=== PATIENT | female | born 1990 | race Two or more races ===

== ENCOUNTER 2020-02-11 19:31 | Emergency (ER) | payer BC, OTHER ==
[~2020-02-11] VITALS: Ht 170.2 cm; Wt 104.0 kg
[2020-02-11] MEDS ORDERED: ONDANSETRON 2MG/ML, 2ML IVPush ONE (20:00)
--- NOTE | 2020-02-11 20:06 | NUR ---
pt to room from lobby
[2020-02-11 20:23] LABS: BASOPHILS % (AUTO) 0 % (0-1); EOSINOPHILS % (AUTO) 1 % (1-7); LYMPHOCYTES % (AUTO) 30 % (22-44); MEAN CORPUSCULAR HEMOGLOBIN 29.9 pg (27.0-34.8); MEAN CORPUSCULAR HGB CONC 34.6 g/dL (32.4-35.8); MEAN PLATELET VOLUME 9.1 fL (7.4-10.4); MONOCYTES % (AUTO) 5 % (2-9); NEUTROPHILS % (AUTO) 64 % (42-75); PLATELET COUNT 233 x10^3/uL (130-400); RED BLOOD COUNT 4.62 x10^6/uL (3.82-5.3); RED CELL DISTRIBUTION WIDTH 12.5 % (9.6-15.2)
[2020-02-11 20:25] LABS: MICROSCOPIC NOT IND
[2020-02-11 20:26] LABS: MD NO
[2020-02-11 20:37] LABS: ALANINE AMINOTRANSFERASE 32 U/L (12-78); ANION GAP 6 mmol/L (5-15); CHLORIDE 107 mmol/L (98-107); CREATININE 0.57 mg/dL (0.55-1.02)
[2020-02-11 20:41] LABS: ALKALINE PHOSPHATASE 86 U/L (45-117); BILIRUBIN,TOTAL 0.3 mg/dL (0.2-1.0); TOTAL PROTEIN 6.9 g/dL (6.4-8.2); TROPONIN I < 0.015 ng/mL (0.000-0.045)
[2020-02-11] MEDS ORDERED: LABETALOL 5MG/ML, 20ML ONE (20:46)
[2020-02-11] MEDS ORDERED: LABETALOL 5MG/ML, 20ML IVPush ONE (21:00)
[2020-02-11 21:13] VITALS: BP 133/86
== END 2020-02-11 21:29 | disposition home or self-care (01) ==
LOC: EDBD 19:31 → ED 21:18
DX: O26.891 Other specified pregnancy related conditions, first trimester (principal); R51.9 Headache, unspecified; R00.0 Tachycardia, unspecified; I10 Essential (primary) hypertension; R06.02 Shortness of breath; Z3A.12 12 weeks gestation of pregnancy
CPT/HCPCS: 36415; 71045; 80053; 81003; 83880; 84484; 85025; 93005; 96374; 99285

== ENCOUNTER 2020-03-18 13:11 | Emergency (ER) | payer MEDICAID ==
[~2020-03-18] VITALS: Ht 170.2 cm; Wt 98.8 kg
[2020-03-18] MEDS ORDERED: LABE200T6 PO (13:46)
[2020-03-18] MEDS ORDERED: SODIUM CHLORIDE FLUSH 10ML SYR IVF ONE (14:00)
[2020-03-18] MEDS ORDERED: SODIUM CHLORIDE 0.9% 1,000ML IVBOLUS ONE (14:00)
[2020-03-18] MEDS ORDERED: METOCLOPRAMIDE 5 MG/ML, 2ML IVPush ONE (14:00)
[2020-03-18 14:15] LABS: ALANINE AMINOTRANSFERASE 69 U/L (12-78); ALBUMIN 2.7 g/dL (3.4-5.0); ANION GAP 10 mmol/L (5-15); CALCIUM 8.9 mg/dL (8.5-10.1); CHLORIDE 106 mmol/L (98-107)
[2020-03-18 14:17] LABS: ALKALINE PHOSPHATASE 135 U/L (45-117); BASOPHILS % (AUTO) 0 % (0-1); BILIRUBIN,TOTAL 0.3 mg/dL (0.2-1.0); EOSINOPHILS % (AUTO) 0 % (1-7); LYMPHOCYTES % (AUTO) 23 % (22-44); MEAN CORPUSCULAR HEMOGLOBIN 29.4 pg (27.0-34.8); MEAN CORPUSCULAR HGB CONC 34.3 g/dL (32.4-35.8); MEAN PLATELET VOLUME 9.5 fL (7.4-10.4); MONOCYTES % (AUTO) 13 % (2-9); NEUTROPHILS % (AUTO) 63 % (42-75); PLATELET COUNT 165 x10^3/uL (130-400); RED BLOOD COUNT 5.04 x10^6/uL (3.82-5.3); RED CELL DISTRIBUTION WIDTH 12.6 % (9.6-15.2); TOTAL PROTEIN 6.8 g/dL (6.4-8.2)
[2020-03-18] MEDS ORDERED: METOCLOPRAMIDE 5 MG/ML, 2ML ONE (14:21)
[2020-03-18 14:23] LABS: MD NO
[2020-03-18 14:41] LABS: MICROSCOPIC NOT IND
--- NOTE | 2020-03-18 14:49 | NUR ---
UA SENT, MEDICATED PER ORDERS .PT NAUSEAUS
[2020-03-18 16:25] VITALS: BP 130/86
== END 2020-03-18 16:28 | disposition home or self-care (01) ==
LOC: ED 15:57
DX: U07.1 COVID-19 (principal); O21.9 Vomiting of pregnancy, unspecified; I10 Essential (primary) hypertension; Z3A.17 17 weeks gestation of pregnancy
CPT/HCPCS: 36415; 80053; 81003; 83690; 85025; 96361; 96374; 99283; J2765; J7030

== ENCOUNTER 2020-05-26 12:11 | Inpatient (IN) | payer BC, MEDICAID ==
[~2020-05-26] VITALS: Ht 170.2 cm; Wt 104.5 kg
[~2020-05-26 12:11] MED LIST: LABE200T6 PO
[2020-05-26 12:46] LABS: BASOPHILS % (AUTO) 1 % (0-1); EOSINOPHILS % (AUTO) 1 % (1-7); LYMPHOCYTES % (AUTO) 21 % (22-44); MEAN CORPUSCULAR HEMOGLOBIN 30.6 pg (27.0-34.8); MEAN CORPUSCULAR HGB CONC 34.6 g/dL (32.4-35.8); MEAN PLATELET VOLUME 10.1 fL (7.4-10.4); MONOCYTES % (AUTO) 6 % (2-9); NEUTROPHILS % (AUTO) 71 % (42-75); PLATELET COUNT 223 x10^3/uL (130-400); RED BLOOD COUNT 4.54 x10^6/uL (3.82-5.3); RED CELL DISTRIBUTION WIDTH 13.7 % (9.6-15.2)
[2020-05-26] MEDS ORDERED: LABETALOL 5MG/ML, 20ML ONE (12:49)
[2020-05-26 12:51] LABS: MD NO
[2020-05-26 12:55] LABS: ALANINE AMINOTRANSFERASE 18 U/L (12-78); ALBUMIN 2.5 g/dL (3.4-5.0); ANION GAP 8 mmol/L (5-15); CALCIUM 9.4 mg/dL (8.5-10.1); CHLORIDE 110 mmol/L (98-107); CREATININE 0.47 mg/dL (0.55-1.02)
[2020-05-26 12:58] LABS: ALKALINE PHOSPHATASE 110 U/L (45-117); BILIRUBIN,TOTAL 0.2 mg/dL (0.2-1.0); TOTAL PROTEIN 6.5 g/dL (6.4-8.2)
[2020-05-26] MEDS ORDERED: LABETALOL 5MG/ML, 20ML IVPush PRN ×3 (13:00)
[2020-05-26] MEDS ORDERED: hydrALAzine 20 MG/ML, 1ML IVPush ONE (13:00)
[2020-05-26 13:07] LABS: MICROSCOPIC NOT IND
[2020-05-26 14:45] VITALS: BP 168/105
[2020-05-26] MEDS ORDERED: PREN1TAB60 PO (16:25)
[2020-05-26] MEDS ORDERED: ASPI-963 PO (16:26)
[2020-05-26] MEDS ORDERED: ACETAMINOPHEN 325 MG TABLET ONE (17:12)
[2020-05-26] MEDS: ACETAMINOPHEN 325 MG TABLET PO PRN (17:20)
[2020-05-26] MEDS ORDERED: LACTATED RINGERS 1,000 ML IV SCH ×2 (17:30→17:38)
[2020-05-26] MEDS ORDERED: LABETALOL 200 MG TABLET HOMEMEDPO ONE (18:00)
[2020-05-26] MEDS ORDERED: LABETALOL 200 MG TABLET PO SCH (18:00)
[2020-05-26] MEDS: SODIUM CHLORIDE FLUSH 3ML SYRINGE IVF SCH (21:00)
[2020-05-26] MEDS ORDERED: ONDANSETRON 2MG/ML, 2ML ONE (21:01)
[2020-05-26] MEDS: ONDANSETRON 2MG/ML, 2ML IVPush PRN (21:03)
[2020-05-26] MEDS: OXYcodone/APAP 5/325MG TABLET PO PRN (22:16)
[2020-05-27] MEDS: LABETALOL 200 MG TABLET HOMEMEDPO SCH ×2 (01:58→10:00)
[2020-05-27] MEDS: ACETAMINOPHEN 325 MG TABLET PO PRN ×3 (03:02→22:25)
[2020-05-27] MEDS ORDERED: IBUPROFEN 600 MG TABLET PO ONE (03:30)
[2020-05-27] MEDS: SODIUM CHLORIDE FLUSH 3ML SYRINGE IVF SCH ×2 (08:41→19:30)
[2020-05-27 08:55] VITALS: BP 151/76
[2020-05-27] MEDS: ASPIRIN 81 MG TABLET EC HOMEMEDPO SCH (09:00)
[2020-05-27] MEDS: PRENATAL VIT/IRON/FA 1 EACH TABLET HOMEMEDPO SCH (09:00)
[2020-05-27] MEDS: LABETALOL 300 MG TABLET PO SCH (17:56)
[2020-05-27 19:28] VITALS: BP 170/94
[2020-05-27] MEDS ORDERED: hydrALAzine 20 MG/ML, 1ML ONE (19:48)
[2020-05-27] MEDS ORDERED: hydrALAzine 20 MG/ML, 1ML IV ONE (20:00)
[2020-05-27] MEDS ORDERED: hydrALAzine 20 MG/ML, 1ML IVPush ONE ×2 (20:00)
[2020-05-27] MEDS ORDERED: LABETALOL 5MG/ML, 20ML IVPush ONE (20:00)
[2020-05-27] MEDS: ONDANSETRON 2MG/ML, 2ML IVPush PRN (22:59)
[2020-05-28] MEDS: LABETALOL 300 MG TABLET PO SCH ×3 (01:51→18:12)
[2020-05-28] MEDS: ACETAMINOPHEN 325 MG TABLET PO PRN (02:35)
[2020-05-28 07:10] VITALS: BP 148/83
[2020-05-28] MEDS ORDERED: BUTALB/APAP/CAFFEINE 50MG/325MG/40MG ONE (07:16)
[2020-05-28] MEDS: BUTALB/APAP/CAFFEINE 50MG/325MG/40MG PO PRN (07:26)
[2020-05-28] MEDS ORDERED: BUTALBIT/ACETAMIN/CAFF/CODEINE CAPSULE PO PRN ×2 (07:30)
[2020-05-28] MEDS ORDERED: [UNRECOGNIZED DRUG - OTHER] MC SCH (07:30)
[2020-05-28] MEDS: ONDANSETRON 2MG/ML, 2ML IVPush PRN (07:47)
[2020-05-28] MEDS ORDERED: BUTALB/APAP/CAFFEINE 50MG/325MG/40MG PO ONE ×2 (08:30→13:30)
[2020-05-28] MEDS: SODIUM CHLORIDE FLUSH 3ML SYRINGE IVF SCH ×2 (09:00→21:00)
[2020-05-28] MEDS: PRENATAL VIT/IRON/FA 1 EACH TABLET HOMEMEDPO SCH (09:52)
[2020-05-28] MEDS: ASPIRIN 81 MG TABLET EC HOMEMEDPO SCH (09:52)
[2020-05-28] MEDS ORDERED: PROCHLORPERAZINE 10MG TABLET PO PRN (13:30)
[2020-05-28] MEDS: OXYcodone/APAP 5/325MG TABLET PO PRN (13:55)
[2020-05-28] MEDS: BETAMETHASONE 6 MG/ML, 5ML IM SCH (14:06)
[2020-05-28 14:28] LABS: ALANINE AMINOTRANSFERASE 19 U/L (12-78); ALBUMIN 2.4 g/dL (3.4-5.0); ANION GAP 8 mmol/L (5-15); CALCIUM 9.4 mg/dL (8.5-10.1); CHLORIDE 109 mmol/L (98-107)
[2020-05-28 14:30] LABS: BASOPHILS % (AUTO) 1 % (0-1); BILIRUBIN, DIRECT < 0.1 mg/dL (0.1-0.2); EOSINOPHILS % (AUTO) 0 % (1-7); LYMPHOCYTES % (AUTO) 20 % (22-44); MEAN CORPUSCULAR HEMOGLOBIN 30.5 pg (27.0-34.8); MEAN CORPUSCULAR HGB CONC 33.9 g/dL (32.4-35.8); MEAN PLATELET VOLUME 10.8 fL (7.4-10.4); MONOCYTES % (AUTO) 6 % (2-9); NEUTROPHILS % (AUTO) 74 % (42-75); PLATELET COUNT 225 x10^3/uL (130-400); RED BLOOD COUNT 4.44 x10^6/uL (3.82-5.3); RED CELL DISTRIBUTION WIDTH 13.5 % (9.6-15.2)
[2020-05-28 14:31] LABS: ALKALINE PHOSPHATASE 101 U/L (45-117); BILIRUBIN,TOTAL 0.2 mg/dL (0.2-1.0); CREATININE 0.66 mg/dL (0.55-1.02); TOTAL PROTEIN 6.6 g/dL (6.4-8.2)
[2020-05-28 14:33] LABS: MD NO
[2020-05-28] MEDS ORDERED: niFEDipine ER 30 MG TABLET.ER ONE (15:52)
[2020-05-28] MEDS: niFEDipine ER 30 MG TABLET.ER PO SCH (15:54)
[2020-05-28 19:15] VITALS: BP 135/80
[2020-05-29] MEDS: LABETALOL 300 MG TABLET PO SCH ×3 (02:20→17:54)
[2020-05-29 07:23] VITALS: BP 120/68
[2020-05-29] MEDS: PRENATAL VIT/IRON/FA 1 EACH TABLET HOMEMEDPO SCH (10:03)
[2020-05-29] MEDS: ASPIRIN 81 MG TABLET EC HOMEMEDPO SCH (10:03)
[2020-05-29] MEDS: SODIUM CHLORIDE FLUSH 3ML SYRINGE IVF SCH ×2 (10:04→21:46)
[2020-05-29] MEDS: BETAMETHASONE 6 MG/ML, 5ML IM SCH (13:30)
[2020-05-29] MEDS: niFEDipine ER 30 MG TABLET.ER PO SCH (14:15)
[2020-05-29] MEDS ORDERED: hydrALAzine 20 MG/ML, 1ML ONE (15:37)
[2020-05-29] MEDS ORDERED: hydrALAzine 20 MG/ML, 1ML IVPush ONE ×4 (16:00→17:00)
[2020-05-29] MEDS ORDERED: LABETALOL 5MG/ML, 20ML IVPush ONE (16:00)
[2020-05-29 19:12] VITALS: BP 138/82
[2020-05-30] MEDS: LABETALOL 300 MG TABLET PO SCH ×3 (01:51→18:17)
[2020-05-30] MEDS: SODIUM CHLORIDE FLUSH 3ML SYRINGE IVF SCH ×2 (09:00→21:00)
[2020-05-30] MEDS: ASPIRIN 81 MG TABLET EC HOMEMEDPO SCH (10:05)
[2020-05-30] MEDS: PRENATAL VIT/IRON/FA 1 EACH TABLET HOMEMEDPO SCH (10:05)
[2020-05-30 10:30] VITALS: BP 145/75
[2020-05-30] MEDS: niFEDipine ER 30 MG TABLET.ER PO SCH (15:08)
[2020-05-30] MEDS ORDERED: LABETALOL 100 MG TABLET PO ONE (18:30)
[2020-05-30] MEDS ORDERED: hydrALAzine 20 MG/ML, 1ML ONE (18:40)
[2020-05-30] MEDS ORDERED: hydrALAzine 20 MG/ML, 1ML IVPush ONE ×3 (19:00→21:30)
[2020-05-30 19:27] VITALS: BP 146/83
[2020-05-30 20:55] VITALS: BP 174/106
[2020-05-30 21:15] VITALS: BP 165/101
[2020-05-30] MEDS ORDERED: LABETALOL 5MG/ML, 20ML IVPush ONE (21:30)
[2020-05-30 22:00] VITALS: BP 159/101
[2020-05-30 22:23] VITALS: BP 126/73
[2020-05-31] MEDS ORDERED: LABETALOL 100 MG TABLET ONE (01:54)
[2020-05-31 01:58] VITALS: BP 137/74
[2020-05-31] MEDS: LABETALOL 200 MG TABLET PO SCH ×3 (01:59→17:01)
[2020-05-31] MEDS ORDERED: LABETALOL 300 MG TABLET PO SCH (02:00)
[2020-05-31] MEDS: SODIUM CHLORIDE FLUSH 3ML SYRINGE IVF SCH ×2 (09:00→21:00)
[2020-05-31] MEDS: ASPIRIN 81 MG TABLET EC HOMEMEDPO SCH (09:09)
[2020-05-31] MEDS: PRENATAL VIT/IRON/FA 1 EACH TABLET HOMEMEDPO SCH (09:09)
[2020-05-31] MEDS: LACTATED RINGERS 1,000 ML IV PRN ×2 (10:12→18:33)
[2020-05-31] MEDS ORDERED: MAGNESIUM SULFATE PMX 4GM/100M 100 ML IVPB ONE (10:30)
[2020-05-31] MEDS: MAGNESIUM SULF. PMX 20GM/500ML 500 ML IV SCH ×2 (10:49→17:46)
[2020-05-31 13:11] LABS: CREATININE,URINE RANDOM 60.7 mg/dL
[2020-05-31] MEDS: niFEDipine ER 30 MG TABLET.ER PO SCH (15:14)
[2020-05-31 16:31] LABS: BASOPHILS % (AUTO) 0 % (0-1); EOSINOPHILS % (AUTO) 0 % (1-7); LYMPHOCYTES % (AUTO) 23 % (22-44); MEAN CORPUSCULAR HEMOGLOBIN 30.4 pg (27.0-34.8); MEAN CORPUSCULAR HGB CONC 33.6 g/dL (32.4-35.8); MEAN PLATELET VOLUME 9.8 fL (7.4-10.4); MONOCYTES % (AUTO) 9 % (2-9); NEUTROPHILS % (AUTO) 67 % (42-75); PLATELET COUNT 239 x10^3/uL (130-400); RED BLOOD COUNT 4.43 x10^6/uL (3.82-5.3); RED CELL DISTRIBUTION WIDTH 13.7 % (9.6-15.2)
[2020-05-31 16:36] LABS: MD NO
[2020-05-31 16:40] LABS: ALBUMIN 2.5 g/dL (3.4-5.0); ANION GAP 10 mmol/L (5-15); CALCIUM 8.1 mg/dL (8.5-10.1); CHLORIDE 107 mmol/L (98-107)
[2020-05-31 16:45] LABS: ALANINE AMINOTRANSFERASE 33 U/L (12-78); ALKALINE PHOSPHATASE 97 U/L (45-117); BILIRUBIN,TOTAL 0.1 mg/dL (0.2-1.0); CREATININE 0.49 mg/dL (0.55-1.02); TOTAL PROTEIN 6.3 g/dL (6.4-8.2)
[2020-05-31] MEDS: BUTALB/APAP/CAFFEINE 50MG/325MG/40MG PO PRN (17:39)
[2020-05-31] MEDS ORDERED: DOCUSATE 100 MG CAPSULE PO SCH (21:00)
[2020-06-01] VITALS: BP 155/87
[2020-06-01] MEDS: BUTALB/APAP/CAFFEINE 50MG/325MG/40MG PO PRN ×2 (00:08→07:09)
[2020-06-01] MEDS: LABETALOL 200 MG TABLET PO SCH ×3 (01:07→19:05)
[2020-06-01] MEDS: MAGNESIUM SULF. PMX 20GM/500ML 500 ML IV SCH (02:49)
[2020-06-01] MEDS ORDERED: hydrALAzine 20 MG/ML, 1ML ONE (06:38)
[2020-06-01] MEDS: LACTATED RINGERS 1,000 ML IV PRN (07:14)
[2020-06-01] MEDS ORDERED: hydrALAzine 20 MG/ML, 1ML IV ONE (07:30)
[2020-06-01] MEDS ORDERED: EPHEDRINE 50 MG/ML, 1ML IVPush PRN (08:30)
[2020-06-01] MEDS ORDERED: METOPROLOL 1 MG/ML, 5ML IV PRN (08:30)
[2020-06-01] MEDS ORDERED: LABETALOL 5MG/ML, 20ML IV PRN (08:30)
[2020-06-01] MEDS ORDERED: HYDROmorphone 2 MG/ML, 1ML IVPush PRN (08:30)
[2020-06-01] MEDS ORDERED: OXYcodone 5 MG/5 ML ORAL.SOL UDC PO PRN (08:30)
[2020-06-01] MEDS ORDERED: hydrALAzine 20 MG/ML, 1ML IV PRN (08:30)
[2020-06-01] MEDS ORDERED: HYDROcodone/APAP 7.5-325MG/15ML UDC PO PRN (08:30)
[2020-06-01] MEDS ORDERED: MIDAZOLAM 1 MG/ML, 2ML IV PRN (08:30)
[2020-06-01] MEDS ORDERED: MEPERIDINE/PF 25MG/0.5ML IVPush PRN (08:30)
[2020-06-01] MEDS ORDERED: ONDANSETRON 2MG/ML, 2ML IVPush PRN (08:30)
[2020-06-01] MEDS ORDERED: FENTANYL PF 100 MCG/2ML IV PRN (08:30)
[2020-06-01] MEDS ORDERED: PROMETHAZINE 25 MG/ML, 1ML IV PRN (08:30)
[2020-06-01] MEDS ORDERED: ALBUTEROL SULFATE 2.5 MG/3 ML NPPB PRN (08:30)
[2020-06-01] MEDS: SODIUM CHLORIDE FLUSH 3ML SYRINGE IVF SCH ×2 (09:00→21:00)
[2020-06-01] MEDS: ONDANSETRON 2MG/ML, 2ML IVPush PRN (09:25)
[2020-06-01] MEDS: ACETAMINOPHEN 325 MG TABLET PO PRN (10:07)
[2020-06-01] MEDS: niFEDipine ER 30 MG TABLET.ER PO SCH (15:20)
[2020-06-01] MEDS ORDERED: niFEDipine ER 30 MG TABLET.ER PO ONE (19:00)
[2020-06-02] MEDS: LABETALOL 200 MG TABLET PO SCH ×3 (01:38→18:53)
[2020-06-02 08:15] VITALS: BP 158/86
[2020-06-02] MEDS: ASPIRIN 81 MG TABLET EC HOMEMEDPO SCH (08:41)
[2020-06-02] MEDS: PRENATAL VIT/IRON/FA 1 EACH TABLET HOMEMEDPO SCH ×2 (08:41→09:00)
[2020-06-02] MEDS: SODIUM CHLORIDE FLUSH 3ML SYRINGE IVF SCH ×2 (09:00→21:00)
[2020-06-02] MEDS ORDERED: niFEDipine ER 60 MG TABLET.ER PO SCH (15:00)
[2020-06-02] MEDS: BUTALB/APAP/CAFFEINE 50MG/325MG/40MG PO PRN (18:53)
[2020-06-02] MEDS ORDERED: CALCIUM CARBONATE 500 MG TAB.CHEW PO PRN (20:00)
[2020-06-03] MEDS: LABETALOL 200 MG TABLET PO SCH ×2 (03:05→09:12)
[2020-06-03] MEDS ORDERED: DIPHENHYDRAMINE 25 MG CAPSULE ONE (03:09)
[2020-06-03] MEDS ORDERED: DIPHENHYDRAMINE 25 MG CAPSULE PO PRN (03:30)
[2020-06-03] MEDS ORDERED: NEWBORN KIT ONE (08:54)
[2020-06-03] MEDS ORDERED: FENTANYL PF 100 MCG/2ML ONE (08:56)
[2020-06-03] MEDS ORDERED: EPHEDRINE 50 MG/ML, 1ML ONE (08:56)
[2020-06-03] MEDS ORDERED: OXYTOCIN 10 UNITS/ML, 1ML ONE (08:56)
[2020-06-03] MEDS ORDERED: EPINEPHRINE 1 MG/ML, 1ML ONE (08:56)
[2020-06-03] MEDS ORDERED: CEFAZOLIN 1,000 MG ONE (08:56)
[2020-06-03] MEDS: MAGNESIUM SULF. PMX 20GM/500ML 500 ML IV SCH ×2 (09:00→16:53)
[2020-06-03] MEDS: SODIUM CHLORIDE FLUSH 3ML SYRINGE IVF SCH ×2 (09:00→20:38)
[2020-06-03] MEDS: PRENATAL VIT/IRON/FA 1 EACH TABLET HOMEMEDPO SCH (09:00)
[2020-06-03] MEDS ORDERED: METOCLOPRAMIDE 5 MG/ML, 2ML ONE (09:07)
[2020-06-03] MEDS ORDERED: SODIUM CITRATE/CITRIC ACID 15 ML UDC ONE (09:07)
[2020-06-03] MEDS ORDERED: morphine SULFATE 10 MG/ML, 1ML IVPush PRN (09:30)
[2020-06-03] MEDS ORDERED: FENTANYL PF 100 MCG/2ML IV PRN (09:30)
[2020-06-03] MEDS ORDERED: SODIUM CITRATE/CITRIC ACID 30 ML UDC PO ONE (09:30)
[2020-06-03] MEDS ORDERED: LABETALOL 5MG/ML, 20ML IV PRN (09:30)
[2020-06-03] MEDS ORDERED: hydrALAzine 20 MG/ML, 1ML IV PRN (09:30)
[2020-06-03] MEDS ORDERED: OXYcodone 5 MG/5 ML ORAL.SOL UDC PO PRN (09:30)
[2020-06-03] MEDS ORDERED: EPHEDRINE 50 MG/ML, 1ML IVPush PRN (09:30)
[2020-06-03] MEDS ORDERED: LACTATED RINGERS 1,000 ML IVBOLUS ONE (09:30)
[2020-06-03] MEDS ORDERED: METOCLOPRAMIDE 5 MG/ML, 2ML IV ONE (09:30)
[2020-06-03] MEDS ORDERED: MEPERIDINE/PF 25MG/0.5ML IVPush PRN (09:30)
[2020-06-03] MEDS ORDERED: ONDANSETRON 2MG/ML, 2ML IVPush PRN (09:30)
[2020-06-03] MEDS ORDERED: LACTATED RINGERS 1,000 ML IV SCH (12:00)
[2020-06-03] MEDS ORDERED: ONDANSETRON 2MG/ML, 2ML IV PRN (12:00)
[2020-06-03] MEDS ORDERED: SIMETHICONE 80 MG CHEW TAB PO PRN (12:00)
[2020-06-03] MEDS ORDERED: MISOPROSTOL 200 MCG TABLET PR PRN (12:00)
[2020-06-03] MEDS ORDERED: OXYcodone/APAP 5/325MG TABLET PO PRN (12:00)
[2020-06-03] MEDS ORDERED: LABETALOL 200 MG TABLET PO SCH ×2 (12:30→18:30)
[2020-06-03] MEDS: OXYTOCIN 30U/ 0.9% NaCL 500ML 500 ML IV SCH ×2 (12:50→22:00)
[2020-06-03] MEDS: LACTATED RINGERS 1,000 ML IV SCH ×2 (12:50→22:00)
[2020-06-03] MEDS: OXYcodone IR 5MG TABLET PO PRN (14:32)
[2020-06-03] MEDS ORDERED: niFEDipine ER 30 MG TABLET.ER ONE ×2 (14:56→22:27)
[2020-06-03] MEDS: morphine SULFATE 10 MG/ML, 1ML IVPush PRN ×2 (15:08→18:10)
[2020-06-03] MEDS: KETOROLAC 30 MG/1 ML IV SCH ×2 (15:49→22:29)
[2020-06-03 19:20] VITALS: BP 167/106
[2020-06-03 21:06] LABS: BASOPHILS % (AUTO) 0 % (0-1); EOSINOPHILS % (AUTO) 0 % (1-7); LYMPHOCYTES % (AUTO) 14 % (22-44); MEAN CORPUSCULAR HEMOGLOBIN 30.2 pg (27.0-34.8); MEAN CORPUSCULAR HGB CONC 33.9 g/dL (32.4-35.8); MEAN PLATELET VOLUME 9.7 fL (7.4-10.4); MONOCYTES % (AUTO) 7 % (2-9); NEUTROPHILS % (AUTO) 79 % (42-75); PLATELET COUNT 213 x10^3/uL (130-400); RED BLOOD COUNT 4.65 x10^6/uL (3.82-5.3); RED CELL DISTRIBUTION WIDTH 13.6 % (9.6-15.2)
[2020-06-03 21:07] LABS: MD NO
[2020-06-03] MEDS ORDERED: niFEDipine ER 30 MG TABLET.ER PO ONE (22:18)
[2020-06-04] MEDS ORDERED: DIPHENHYDRAMINE 50 MG CAPSULE PO PRN (00:30)
[2020-06-04] MEDS ORDERED: DIPHENHYDRAMINE 25 MG CAPSULE PO PRN (01:00)
[2020-06-04] MEDS: MAGNESIUM SULF. PMX 20GM/500ML 500 ML IV SCH (03:00)
[2020-06-04] MEDS: KETOROLAC 30 MG/1 ML IV SCH ×4 (03:49→22:31)
[2020-06-04] MEDS: LABETALOL 200 MG TABLET PO SCH ×3 (03:50→20:06)
[2020-06-04] MEDS: OXYcodone IR 5MG TABLET PO PRN ×4 (06:25→20:06)
[2020-06-04 07:28] VITALS: BP 115/71
[2020-06-04] MEDS ORDERED: niFEDipine ER 30 MG TABLET.ER PO SCH ×2 (09:00→15:00)
[2020-06-04] MEDS: DOCUSATE 100 MG CAPSULE PO PRN ×3 (09:08→20:05)
[2020-06-04] MEDS: PRENATAL VIT/IRON/FA 1 EACH TABLET HOMEMEDPO SCH (09:08)
[2020-06-04] MEDS: PRENATAL VIT/IRON/FA 1 EACH TABLET PO SCH (09:49)
[2020-06-04 13:00] VITALS: BP 138/89
[2020-06-04 14:55] VITALS: BP 139/89
[2020-06-04] MEDS ORDERED: niFEDipine ER 60 MG TABLET.ER PO SCH (15:00)
[2020-06-04] MEDS: SODIUM CHLORIDE FLUSH 3ML SYRINGE IVF SCH ×2 (18:00→21:00)
[2020-06-04 19:45] VITALS: BP 149/97
[2020-06-04 23:35] VITALS: BP 120/84
[2020-06-05] MEDS: OXYcodone IR 5MG TABLET PO PRN ×3 (02:15→18:16)
[2020-06-05] MEDS: IBUPROFEN 600 MG TABLET PO PRN ×3 (02:15→15:03)
[2020-06-05] MEDS: KETOROLAC 30 MG/1 ML IV SCH ×2 (04:00→10:00)
[2020-06-05 04:30] VITALS: BP 134/85
[2020-06-05] MEDS: LABETALOL 200 MG TABLET PO SCH ×2 (04:41→17:06)
[2020-06-05 07:45] VITALS: BP 149/105
[2020-06-05] MEDS: DOCUSATE 100 MG CAPSULE PO PRN (08:01)
[2020-06-05] MEDS: PRENATAL VIT/IRON/FA 1 EACH TABLET HOMEMEDPO SCH (09:00)
[2020-06-05] MEDS ORDERED: CYCLOBENZAPRINE 10 MG TABLET PO ONE (09:00)
[2020-06-05 12:15] VITALS: BP 130/88
[2020-06-05] MEDS: niFEDipine ER 60 MG TABLET.ER PO SCH (15:03)
[2020-06-05 16:46] VITALS: BP 139/82
[2020-06-05] MEDS: ACETAMINOPHEN 325 MG TABLET PO PRN (18:15)
[2020-06-05 20:00] VITALS: BP 128/84
[2020-06-05] MEDS: PRENATAL VIT/IRON/FA 1 EACH TABLET PO SCH (23:36)
[2020-06-06] VITALS (8 sets, daily range): BP systolic 116–148; BP diastolic 80–95
[2020-06-06] MEDS: ACETAMINOPHEN 325 MG TABLET PO PRN ×4 (01:00→20:19)
[2020-06-06] MEDS: LABETALOL 200 MG TABLET PO SCH ×3 (01:00→16:47)
[2020-06-06] MEDS: IBUPROFEN 600 MG TABLET PO PRN ×3 (01:00→20:19)
[2020-06-06] MEDS: OXYcodone IR 5MG TABLET PO PRN ×3 (06:07→20:20)
[2020-06-06] MEDS: DOCUSATE 100 MG CAPSULE PO PRN ×2 (08:46→20:19)
[2020-06-06] MEDS: PRENATAL VIT/IRON/FA 1 EACH TABLET PO SCH (09:00)
[2020-06-06] MEDS: PRENATAL VIT/IRON/FA 1 EACH TABLET HOMEMEDPO SCH (09:00)
[2020-06-06] MEDS: niFEDipine ER 60 MG TABLET.ER PO SCH (14:45)
[2020-06-07 00:33] VITALS: BP 137/92
[2020-06-07] MEDS: LABETALOL 200 MG TABLET PO SCH ×3 (01:09→18:15)
[2020-06-07] MEDS: OXYcodone IR 5MG TABLET PO PRN ×3 (01:09→19:41)
[2020-06-07 04:17] VITALS: BP 136/85
[2020-06-07] MEDS ORDERED: OXYC-302 PO (07:36)
[2020-06-07 07:50] VITALS: BP 151/101
[2020-06-07] MEDS ORDERED: ONDANSETRON ODT 4 MG PO PRN (08:30)
[2020-06-07] MEDS: DOCUSATE 100 MG CAPSULE PO PRN (08:31)
[2020-06-07] MEDS: PRENATAL VIT/IRON/FA 1 EACH TABLET HOMEMEDPO SCH (08:38)
[2020-06-07] MEDS: PRENATAL VIT/IRON/FA 1 EACH TABLET PO SCH (08:39)
[2020-06-07] MEDS ORDERED: METOCLOPRAMIDE 10MG TABLET PO PRN (10:30)
[2020-06-07 12:20] VITALS: BP 145/93
[2020-06-07] MEDS: IBUPROFEN 600 MG TABLET PO PRN ×2 (12:37→19:41)
[2020-06-07] MEDS ORDERED: D5%-LACTATED RINGERS 1,000 ML IV ONE (13:30)
[2020-06-07 14:07] LABS: BASOPHILS % (AUTO) 1 % (0-1); EOSINOPHILS % (AUTO) 2 % (1-7); LYMPHOCYTES % (AUTO) 14 % (22-44); MEAN CORPUSCULAR HEMOGLOBIN 30.3 pg (27.0-34.8); MEAN CORPUSCULAR HGB CONC 33.8 g/dL (32.4-35.8); MEAN PLATELET VOLUME 8.8 fL (7.4-10.4); MONOCYTES % (AUTO) 5 % (2-9); NEUTROPHILS % (AUTO) 78 % (42-75); PLATELET COUNT 281 x10^3/uL (130-400); RED CELL DISTRIBUTION WIDTH 13.2 % (9.6-15.2)
[2020-06-07 14:13] LABS: MD NO
[2020-06-07 14:20] LABS: ALANINE AMINOTRANSFERASE 45 U/L (12-78); ALBUMIN 2.4 g/dL (3.4-5.0); ANION GAP 9 mmol/L (5-15); CALCIUM 8.9 mg/dL (8.5-10.1); CHLORIDE 107 mmol/L (98-107); CREATININE 0.76 mg/dL (0.55-1.02)
[2020-06-07 14:22] LABS: ALKALINE PHOSPHATASE 130 U/L (45-117); BILIRUBIN,TOTAL 0.4 mg/dL (0.2-1.0); TOTAL PROTEIN 6.6 g/dL (6.4-8.2)
[2020-06-07 15:17] LABS: MICROSCOPIC AUTO
[2020-06-07 16:00] VITALS: BP 157/94
[2020-06-07] MEDS: niFEDipine ER 60 MG TABLET.ER PO SCH (16:09)
[2020-06-07 20:00] VITALS: BP 141/94
[2020-06-08 00:52] VITALS: BP 148/99
[2020-06-08] MEDS: OXYcodone IR 5MG TABLET PO PRN (00:52)
[2020-06-08] MEDS: LABETALOL 200 MG TABLET PO SCH ×2 (00:52→08:30)
[2020-06-08 04:14] VITALS: BP 141/90
[2020-06-08 08:14] VITALS: BP 139/101
[2020-06-08] MEDS: PRENATAL VIT/IRON/FA 1 EACH TABLET HOMEMEDPO SCH (08:30)
[2020-06-08] MEDS: IBUPROFEN 600 MG TABLET PO PRN ×2 (08:30→15:04)
[2020-06-08] MEDS: PRENATAL VIT/IRON/FA 1 EACH TABLET PO SCH (08:33)
[2020-06-08] MEDS: BUTALB/APAP/CAFFEINE 50MG/325MG/40MG PO PRN (09:22)
[2020-06-08 12:06] VITALS: BP 155/114
[2020-06-08 12:45] VITALS: BP 135/85
[2020-06-08] MEDS: niFEDipine ER 60 MG TABLET.ER PO SCH (15:04)
[2020-06-08 15:05] VITALS: BP 139/85
[2020-06-08] MEDS ORDERED: NIFE60TA2 PO (15:55)
[2020-06-08] MEDS ORDERED: IBUP-1222 PO (15:55)
== END 2020-06-08 16:45 | disposition home or self-care (01) | DRG 784 ==
LOC: LDOP 12:11 → LDIP 14:02 → NSY 05-27 13:28 → OBSVTOIN 05-27 14:02 → 2NE 06-03 14:09 → 2NW 06-04 11:34
PROVIDERS: ADMIT Obstetrics & Gynecology; ATTEND Obstetrics & Gynecology
PROC: 10D00Z1 Extraction of Products of Conception, Low, Open Approach (ICD-10-PCS; principal; 2020-06-03)
PROC: 0UB70ZZ Excision of Bilateral Fallopian Tubes, Open Approach (ICD-10-PCS; 2020-06-03)
DX: O60.13X0 Preterm labor second trimester with preterm delivery third trimester, not applicable or unspecified (principal); O10.92 Unspecified pre-existing hypertension complicating childbirth; O99.354 Diseases of the nervous system complicating childbirth; O32.1XX0 Maternal care for breech presentation, not applicable or unspecified; O34.211 Maternal care for low transverse scar from previous cesarean delivery; G43.909 Migraine, unspecified, not intractable, without status migrainosus; K66.0 Peritoneal adhesions (postprocedural) (postinfection); O11.4 Pre-existing hypertension with pre-eclampsia, complicating childbirth; O89.4 Spinal and epidural anesthesia-induced headache during the puerperium; Z3A.26 26 weeks gestation of pregnancy; Z37.0 Single live birth; Z30.2 Encounter for sterilization; Z90.49 Acquired absence of other specified parts of digestive tract; Z20.822 Contact with and (suspected) exposure to COVID-19
CPT/HCPCS: 36415; 85613; 85670; 85705; 85732; 86146; 86147; J7121; Q0164; 76815; 80053; 81001; 81003; 82248; 82570; 82950; 83735; 84156; 84550; 85025; 86850; 86900; 87086; 87635; 88302; 88305; G0378; J0171; J0690; J0702; J1885; J2405; J3010; Q0162; J0360; J2270; J2590; J2765; J3475; J7120; Q0163

== ENCOUNTER 2020-06-10 06:40 | Inpatient (IN) | payer BC ==
[~2020-06-10] VITALS: Ht 170.2 cm; Wt 99.9 kg
[~2020-06-10 06:40] MED LIST changes: +ASPI-963 PO; +IBUP-1222 PO; +NIFE60TA2 PO; +OXYC-302 PO; +PREN1TAB60 PO
--- NOTE | 2020-06-10 06:57 | NUR ---
PATIENT LAST KNOWN WELL 06:00. ON ARRIVAL TO UNIT, PATIENT WAS IN ROUTE CODE [place] TO CT SCAN, ESCORTED AND MONITORED. PATIENT NOW IN ROOM, RAILS UP, ON MONITR. AOX4. [facility] 15. PATIENT WAS WITNESSED SEIZURE AT HOME BY ANDRÉS, HE CALLED EMS. PATIENT IS POST PARDEM 5 DAYS. PATIENT IS WITH PREECLAMPSIA ALL THREE PREGNANCIES
[2020-06-10] MEDS ORDERED: MAGNESIUM SULFATE PMX 4GM/100M 100 ML IVPB ONE (07:00)
[2020-06-10] MEDS ORDERED: hydrALAzine 20 MG/ML, 1ML IV ONE ×2 (07:00→08:00)
[2020-06-10] MEDS ORDERED: OMNIPAQUE 350 MG/ML, 100ML BOTTLE ONE (07:05)
[2020-06-10 07:11] LABS: BASOPHILS % (AUTO) 1 % (0-1); EOSINOPHILS % (AUTO) 3 % (1-7); LYMPHOCYTES % (AUTO) 18 % (22-44); MEAN CORPUSCULAR HEMOGLOBIN 30.3 pg (27.0-34.8); MEAN CORPUSCULAR HGB CONC 33.7 g/dL (32.4-35.8); MEAN PLATELET VOLUME 8.3 fL (7.4-10.4); MONOCYTES % (AUTO) 7 % (2-9); NEUTROPHILS % (AUTO) 71 % (42-75); PLATELET COUNT 300 x10^3/uL (130-400); RED BLOOD COUNT 4.57 x10^6/uL (3.82-5.3)
[2020-06-10 07:15] LABS: MD NO
[2020-06-10 07:21] LABS: ALANINE AMINOTRANSFERASE 43 U/L (12-78); ALBUMIN 2.9 g/dL (3.4-5.0); ANION GAP 9 mmol/L (5-15); CALCIUM 8.8 mg/dL (8.5-10.1); CHLORIDE 104 mmol/L (98-107); CREATININE 0.57 mg/dL (0.55-1.02)
--- NOTE | 2020-06-10 07:22 | NUR ---
KERLINE RODRIGUEZ NOW TALKING TO PATIENT
[2020-06-10 07:23] LABS: ALKALINE PHOSPHATASE 138 U/L (45-117); BILIRUBIN,TOTAL 0.3 mg/dL (0.2-1.0)
[2020-06-10 07:24] LABS: INTERNATIONAL NORMALIZED RATIO 0.99 (0.93-1.1); PROTHROMBIN TIME 10.6 Seconds (9.6-11.5)
[2020-06-10] MEDS ORDERED: hydrALAzine 20 MG/ML, 1ML ONE ×2 (07:27→07:49)
[2020-06-10] MEDS ORDERED: MAGNESIUM SULFATE PMX 4GM/100M 100 ML ONE (07:37)
--- NOTE | 2020-06-10 07:48 | NUR ---
SEIZURE PADS ON BED. BEDSIDE
[2020-06-10 07:52] LABS: MICROSCOPIC AUTO
[2020-06-10] MEDS ORDERED: MAGNESIUM SULF. PMX 20GM/500ML 500 ML IV PRN (08:30)
--- NOTE | 2020-06-10 08:57 | NUR ---
ADMITTING NURSE TO CALL BACK KIMBERLEY, IN ROOM
--- NOTE | 2020-06-10 09:09 | NUR ---
REPORT TO KENYA CONTRERAS
[2020-06-10] MEDS ORDERED: LORazepam 2 MG/ML, 1ML IVPush PRN (10:00)
[2020-06-10] MEDS ORDERED: ONDANSETRON 2MG/ML, 2ML IVPush PRN (10:00)
[2020-06-10] MEDS ORDERED: ACETAMINOPHEN 325 MG TABLET PO PRN (10:00)
[2020-06-10] MEDS ORDERED: ONDANSETRON ODT 4 MG PO PRN (10:00)
[2020-06-10 10:38] VITALS: BP 130/88
[2020-06-10] MEDS ORDERED: niFEDipine ER 30 MG TABLET.ER ONE (11:22)
[2020-06-10] MEDS ORDERED: LABETALOL 100 MG TABLET ONE ×2 (11:22→21:28)
[2020-06-10] MEDS: ASPIRIN 81 MG TABLET EC PO SCH (11:29)
[2020-06-10] MEDS: niFEDipine ER 60 MG TABLET.ER PO SCH (11:29)
[2020-06-10] MEDS: LABETALOL 200 MG TABLET PO SCH ×2 (11:29→21:31)
[2020-06-10] MEDS: HEPARIN 5,000 UNITS/ML, 1ML SQ SCH ×2 (11:30→17:40)
[2020-06-10] MEDS: SODIUM CHLORIDE 0.9% 1,000 ML IV SCH (11:31)
[2020-06-10 11:55] VITALS: BP 129/84
[2020-06-10 12:08] VITALS: BP 129/84
[2020-06-10 17:11] VITALS: BP 129/84
[2020-06-10 18:57] VITALS: BP 131/88
[2020-06-10] MEDS: IBUPROFEN 600 MG TABLET PO PRN (21:36)
[2020-06-11 00:26] VITALS: BP 107/69
[2020-06-11] MEDS: HEPARIN 5,000 UNITS/ML, 1ML SQ SCH ×3 (02:24→18:25)
[2020-06-11] MEDS: ASPIRIN 81 MG TABLET EC PO SCH (05:17)
[2020-06-11] MEDS: IBUPROFEN 600 MG TABLET PO PRN ×3 (05:17→21:37)
[2020-06-11] MEDS: SODIUM CHLORIDE 0.9% 1,000 ML IV SCH (05:21)
[2020-06-11 05:23] LABS: BASOPHILS % (AUTO) 1 % (0-1); EOSINOPHILS % (AUTO) 4 % (1-7); LYMPHOCYTES % (AUTO) 30 % (22-44); MD NO; MEAN CORPUSCULAR HEMOGLOBIN 30.5 pg (27.0-34.8); MEAN CORPUSCULAR HGB CONC 33.8 g/dL (32.4-35.8); MEAN PLATELET VOLUME 8.8 fL (7.4-10.4); MONOCYTES % (AUTO) 7 % (2-9); NEUTROPHILS % (AUTO) 59 % (42-75); PLATELET COUNT 312 x10^3/uL (130-400); RED CELL DISTRIBUTION WIDTH 13.1 % (9.6-15.2)
[2020-06-11 05:38] LABS: ANION GAP 6 mmol/L (5-15); CALCIUM 8.9 mg/dL (8.5-10.1); CHLORIDE 108 mmol/L (98-107)
[2020-06-11 05:41] LABS: ALANINE AMINOTRANSFERASE 42 U/L (12-78); ALKALINE PHOSPHATASE 139 U/L (45-117); BILIRUBIN,TOTAL 0.3 mg/dL (0.2-1.0); CHOL/HDL RATIO 4.6; CHOLESTEROL, TOTAL 223 mg/dL (140-239); CREATININE 0.46 mg/dL (0.55-1.02); HDL CHOL % 22 % (28-40); HDL CHOLESTEROL (DIRECT) 48 mg/dL (40-60); LDL CHOLESTEROL,CALCULATED 117 mg/dL (54-169); LDL/HDL RATIO 2.4 (0.5-3.0); TRIGLYCERIDES 289 mg/dL (50-200); VLDL CHOLESTEROL 58 mg/dL (0-25)
[2020-06-11 06:36] VITALS: BP 123/79
[2020-06-11] MEDS ORDERED: PRENATAL VIT/IRON/FA 1 EACH TABLET PO SCH (09:00)
[2020-06-11] MEDS: LABETALOL 200 MG TABLET PO SCH ×2 (09:36→21:38)
[2020-06-11] MEDS: niFEDipine ER 60 MG TABLET.ER PO SCH (09:36)
[2020-06-11 12:02] VITALS: BP 102/67
[2020-06-11 15:29] VITALS: BP 137/83
[2020-06-11 18:58] VITALS: BP 133/95
[2020-06-11] MEDS ORDERED: LABETALOL 100 MG TABLET ONE (21:34)
[2020-06-11 22:35] VITALS: BP 131/86
== END 2020-06-11 22:39 | disposition home or self-care (01) | DRG 776 ==
LOC: ED 07:35 → EDIP 08:19 → 4EST 09:19 → 3N 06-11 15:02
PROVIDERS: ADMIT Internal Medicine; ATTEND Hospitalist
DX: O99.355 Diseases of the nervous system complicating the puerperium (principal); E87.1 Hypo-osmolality and hyponatremia; G40.89 Other seizures; O15.2 Eclampsia complicating the puerperium; O99.285 Endocrine, nutritional and metabolic diseases complicating the puerperium; Z82.49 Family history of ischemic heart disease and other diseases of the circulatory system; Z83.3 Family history of diabetes mellitus; O99.215 Obesity complicating the puerperium; E66.9 Obesity, unspecified; G83.84 Todd's paralysis (postepileptic); Z68.34 Body mass index [BMI] 34.0-34.9, adult
CPT/HCPCS: 36415; 70450; 70496; 70498; 70551; 80047; 80053; 80061; 81001; 82962; 83735; 85025; 85610; 85730; 87086; 93005; 93306; 95819; 96374; G0378; J1644; Q9967; J0360; J3475; J7030

== ENCOUNTER 2020-06-13 22:21 | Emergency (ER) | payer BC ==
[~2020-06-13] VITALS: Ht 170.2 cm; Wt 92.0 kg
--- NOTE | 2020-06-13 22:45 | NUR ---
[facility] of pt. pt here for HTN. pt reports that she is 1 week post- aftera at 27 weeks for pre-ecplampsia pt is complaint with her medications and denies WOLFF, denies dizziness, denies loss or change of vision pt reports that she was seen here 2 days ago for a "seizure" but that she was D/C to home pt A&P x4. no nausea pt has small amount of vaginal bleeding. inscision well healing with steri strips in place. no bleding or drainage noted. pt reports that her baby is in the NICU and that she is curretnly pumping
[2020-06-13 23:02] LABS: BASOPHILS % (AUTO) 1 % (0-1); EOSINOPHILS % (AUTO) 3 % (1-7); LYMPHOCYTES % (AUTO) 31 % (22-44); MEAN CORPUSCULAR HEMOGLOBIN 30.7 pg (27.0-34.8); MEAN CORPUSCULAR HGB CONC 34.4 g/dL (32.4-35.8); MEAN PLATELET VOLUME 8.7 fL (7.4-10.4); MONOCYTES % (AUTO) 6 % (2-9); NEUTROPHILS % (AUTO) 59 % (42-75); PLATELET COUNT 379 x10^3/uL (130-400); RED BLOOD COUNT 4.88 x10^6/uL (3.82-5.3); RED CELL DISTRIBUTION WIDTH 12.8 % (9.6-15.2)
--- NOTE | 2020-06-13 23:02 | NUR ---
Dr. Meek at bedside for eval
[2020-06-13 23:03] LABS: MD NO
[2020-06-13 23:06] LABS: ALBUMIN 3.5 g/dL (3.4-5.0); ANION GAP 9 mmol/L (5-15); CHLORIDE 102 mmol/L (98-107); CREATININE 0.67 mg/dL (0.55-1.02)
[2020-06-13 23:17] LABS: MICROSCOPIC INDICATED
[2020-06-13] MEDS ORDERED: ACETAMINOPHEN 500 MG TABLET PO ONE (23:30)
[2020-06-13] MEDS ORDERED: IBUPROFEN 600 MG TABLET PO ONE (23:30)
[2020-06-14] MEDS ORDERED: ACETAMINOPHEN 500 MG TABLET ONE
[2020-06-14] MEDS ORDERED: IBUPROFEN 600 MG TABLET ONE (00:01)
--- NOTE | 2020-06-14 01:03 | NUR ---
OB has been to bedside for eval
[2020-06-14 01:12] LABS: ALBUMIN 3.5 g/dL (3.4-5.0)
[2020-06-14 01:15] LABS: BILIRUBIN,TOTAL 0.3 mg/dL (0.2-1.0); TOTAL PROTEIN 8.3 g/dL (6.4-8.2)
[2020-06-14 01:30] LABS: BILIRUBIN, DIRECT 0.1 mg/dL (0.1-0.2); BILIRUBIN,INDIRECT 0.2 mg/dL (0.0-2.0)
[2020-06-14 02:11] VITALS: BP 117/70
== END 2020-06-14 02:15 | disposition home or self-care (01) ==
LOC: ED 22:53
DX: I10 Essential (primary) hypertension (principal); R53.1 Weakness
CPT/HCPCS: 36415; 80048; 80076; 81001; 82040; 85025; 87086; 99283

== ENCOUNTER 2020-06-18 18:44 | Emergency (ER) | payer BC ==
[~2020-06-18] VITALS: Ht 170.2 cm; Wt 93.7 kg
--- NOTE | 2020-06-18 18:52 | NUR ---
PT AMBULATED BACK TO ROOM WITH BLEACH MAKER.
[2020-06-18 19:57] LABS: BASOPHILS % (AUTO) 1 % (0-1); EOSINOPHILS % (AUTO) 3 % (1-7); LYMPHOCYTES % (AUTO) 34 % (22-44); MEAN CORPUSCULAR HEMOGLOBIN 30.6 pg (27.0-34.8); MEAN CORPUSCULAR HGB CONC 34.1 g/dL (32.4-35.8); MEAN PLATELET VOLUME 8.9 fL (7.4-10.4); MONOCYTES % (AUTO) 6 % (2-9); NEUTROPHILS % (AUTO) 56 % (42-75); PLATELET COUNT 307 x10^3/uL (130-400); RED BLOOD COUNT 4.42 x10^6/uL (3.82-5.3); RED CELL DISTRIBUTION WIDTH 12.7 % (9.6-15.2)
[2020-06-18 19:59] LABS: MD NO
--- NOTE | 2020-06-18 20:01 | NUR ---
PT AMBULATED TO RESTROOM STEADILY AT THIS TIME.
[2020-06-18 20:09] LABS: ALANINE AMINOTRANSFERASE 56 U/L (12-78); ALBUMIN 3.5 g/dL (3.4-5.0); ANION GAP 8 mmol/L (5-15); CALCIUM 9.2 mg/dL (8.5-10.1); CHLORIDE 106 mmol/L (98-107); CREATININE 0.52 mg/dL (0.55-1.02)
[2020-06-18 20:11] LABS: ALKALINE PHOSPHATASE 141 U/L (45-117); BILIRUBIN,TOTAL 0.3 mg/dL (0.2-1.0); TOTAL PROTEIN 7.2 g/dL (6.4-8.2)
[2020-06-18 20:26] LABS: MICROSCOPIC AUTO
--- NOTE | 2020-06-18 20:26 | NUR ---
PT BIB SELF VIA POV FOR COMPLAINT OF HIGH BLOOD PRESSURE. PT STATES HER OBGYN ASKED THAT SHE GO INTO ED D/T BP OF 150/100. PT DELIVERED WITH PREECLAMSIA ON 06/03/20. PT RESTING IN [facility], BP CURRENTLY 138/84, MONITORING IN PLACE, NADN AT THIS TIME, PT STATES NO PAIN OR DISCOMFORT, WCTM.
[2020-06-18 21:47] LABS: TROPONIN I < 0.015 ng/mL (0.000-0.045)
[2020-06-18] MEDS ORDERED: OMNIPAQUE 350 MG/ML, 75ML BOTTLE ONE (22:47)
[2020-06-18 23:12] VITALS: BP 130/87
== END 2020-06-18 23:45 | disposition home or self-care (01) ==
LOC: ED 19:14
DX: R06.00 Dyspnea, unspecified (principal); I10 Essential (primary) hypertension; R06.02 Shortness of breath; R94.31 Abnormal electrocardiogram [ECG] [EKG]
CPT/HCPCS: 36415; 71046; 71275; 80053; 81001; 83880; 84484; 85025; 85379; 87086; 93005; 99285; Q9967